=== PATIENT | male | born 1985 | race American Indian/Alaskan Native ===

== ENCOUNTER 2022-05-14 18:53 | Emergency (ER) | payer MEDICAID ==
[~2022-05-14] VITALS: Ht 180.3 cm; Wt 137.4 kg
[2022-05-14 18:58] VITALS: BP 128/80
--- NOTE | 2022-05-14 21:59 | NUR ---
PT CALLED IN LOBBY AND OUTSIDE WITH NO ANSWER. PT LWBS
== END 2022-05-14 21:59 | disposition left against medical advice (07) ==
LOC: MED 18:53
DX: R68.83 Chills (without fever) (principal); Z53.21 Procedure and treatment not carried out due to patient leaving prior to being seen by health care provider

== ENCOUNTER 2023-02-05 21:20 | Emergency (ER) | payer MEDICAID ==
[~2023-02-05] VITALS: Ht 180.3 cm; Wt 152.0 kg
[2023-02-05 21:20] VITALS: BP 101/64; PULSE 89; RESP 17; TEMP 97.8; O2SAT 97
[2023-02-05] MEDS ORDERED: MAGN296S48 PO (22:36)
[2023-02-05 22:58] VITALS: BP 101/64; PULSE 89; RESP 17; TEMP 97.8; O2SAT 97
== END 2023-02-05 22:59 | disposition home or self-care (01) ==
LOC: MED 21:20
DX: K59.00 Constipation, unspecified (principal); Z79.899 Other long term (current) drug therapy
CPT/HCPCS: 74018; 99283

== ENCOUNTER 2023-06-27 17:40 | Emergency (ER) | payer MEDICAID ==
[~2023-06-27] VITALS: Ht 180.3 cm; Wt 154.2 kg
[~2023-06-27 17:40] MED LIST: MAGN296S48 PO
[2023-06-27 18:19] VITALS: BP 117/63; PULSE 89; RESP 18; TEMP 98.5; O2SAT 97
[2023-06-27] MEDS ORDERED: ALBU0.0912 IH (19:19)
[2023-06-27] MEDS ORDERED: BENZ200C4 PO (19:19)
[2023-06-27 20:04] LABS: FLU A ANTIGEN negative (NEGATIVE); FLU B ANTIGEN NEGATIVE (NEGATIVE)
== END 2023-06-27 22:43 | disposition home or self-care (01) ==
LOC: MED 17:40
DX: J06.9 Acute upper respiratory infection, unspecified (principal); Z20.822 Contact with and (suspected) exposure to COVID-19; Z79.899 Other long term (current) drug therapy
CPT/HCPCS: 99283

== ENCOUNTER 2023-07-23 17:41 | Emergency (ER) | payer MEDICAID ==
[~2023-07-23] VITALS: Ht 180.3 cm; Wt 158.8 kg
[~2023-07-23 17:41] MED LIST changes: +ALBU0.0912 IH; +BENZ200C4 PO
[2023-07-23 17:59] VITALS: BP 123/94; PULSE 63; RESP 18; TEMP 98; O2SAT 99
[2023-07-23 18:12] VITALS: O2SAT 99
[2023-07-23 18:43] LABS: BASOPHILS # (AUTO) 0.1 K/uL (0.00-0.22); BASOPHILS % (AUTO) 1.1 % (0.0-2.0); EOSINOPHILS # (AUTO) 0.3 K/uL (0-0.4); EOSINOPHILS % (AUTO) 3.5 % (0.0-4.0); HEMATOCRIT 43.6 % (36-52); HEMOGLOBIN 15.2 g/dL (12.0-18.0); LYMPHOCYTES # (AUTO) 2.5 K/uL (2.0-11.5); LYMPHOCYTES % (AUTO) 32.2 % (20.5-51.1); MEAN CORPUSCULAR HEMOGLOBIN 30 pg (27-31); MEAN CORPUSCULAR HGB CONC 35 g/dL (33-37); MEAN CORPUSCULAR VOLUME 87.4 fL (80-94); MONOCYTES # (AUTO) 0.7 K/uL (0.8-1.0); NEUTROPHILS # (AUTO) 4.2 K/uL (1.8-7.7); NEUTROPHILS % (AUTO) 54.2 % (42.2-75.2); PLATELET COUNT (AUTO) 266 K/uL (140-450); RED BLOOD CELL COUNT(AUTO) 4.99 MIL/uL (4.20-6.10); RED CELL DISTRIBUTION WIDTH 13.4 % (11.6-13.7); WHITE BLOOD COUNT (AUTO) 7.8 K/uL (4.8-10.8)
[2023-07-23 18:51] LABS: ANION GAP 10.9 (8-16); CALCIUM 8.7 mg/dL (8.5-10.1); CARBON DIOXIDE 28.2 mmol/L (21-32); CREATININE 1.3 mg/dL (0.6-1.3); POTASSIUM 4.1 mmol/L (3.5-5.1)
[2023-07-23 19:00] LABS: ALBUMIN 3.7 g/dL (3.4-5.0); BILIRUBIN,DIRECT 0.1 mg/dL (0.0-0.3); TOTAL BILIRUBIN 0.3 mg/dL (0.0-1.0); TOTAL PROTEIN, SERUM 7.4 g/dL (6.4-8.2)
[2023-07-23 20:11] VITALS: BP 132/74; PULSE 79; RESP 15; TEMP 98.1; O2SAT 98
== END 2023-07-23 20:05 | disposition home or self-care (01) ==
LOC: MED 17:41
DX: R60.9 Edema, unspecified (principal); Z79.899 Other long term (current) drug therapy
CPT/HCPCS: 36415; 71045; 80048; 80076; 83880; 85025; 93005; 99285